=== PATIENT | male | born 1995 | race Two or more races ===

== ENCOUNTER 2021-02-19 13:51 | Emergency (ER) | payer MEDICAID ==
[~2021-02-19] VITALS: Ht 160 cm; Wt 54.5 kg
[2021-02-19] MEDS ORDERED: CLOT15CR27 TP (14:27)
[2021-02-19 15:04] LABS: CLARITY URINE CLEAR (CLEAR); KETONES URINE NEGATIVE (NEGATIVE); LEUKOCYTE ESTERASE URINE NEGATIVE (NEGATIVE); NITRITE URINE NEGATIVE (NEGATIVE); OCCULT BLOOD URINE NEGATIVE (NEGATIVE); PROTEIN URINE NEGATIVE (NEGATIVE); SPECIFIC GRAVITY URINE 1.007 (1.005-1.030); UROBILINOGEN URINE 0.2 E.U./dL (0.2-1.0)
[2021-02-19 15:27] LABS: COLOR URINE PALE YELLOW (YELLOW)
[2021-02-19] MEDS ORDERED: DOXY100T2 MT (15:43)
[2021-02-19] MEDS ORDERED: CEFTRIAXONE SODIUM 500 MG/VIAL IM ONE (15:45)
[2021-02-19] MEDS ORDERED: LIDOCAINE HCL 1% 20ML VIAL (Pyxis) INJ INFIL ONE (15:45)
[2021-02-19] MEDS ORDERED: DOXYCYCLINE HYCLATE 100MG CAPSULE PO ONE (15:45)
[2021-02-19 16:02] VITALS: BP 125/89
[2021-02-23 04:07] LABS: NEISSERIA GONORRHOEAE NAA Negative (Negative)
== END 2021-02-19 16:00 | disposition home or self-care (01) ==
LOC: ER 13:51
DX: N48.1 Balanitis (principal)
CPT/HCPCS: 81003; 87491; 87591; 96372; 99283; J0696; J3490